=== PATIENT | male | born 1995 | race Caucasian/White ===

== ENCOUNTER 2017-10-16 12:13 | Emergency (ER) | payer SELFPAY ==
[~2017-10-16] VITALS: Ht 180.3 cm; Wt 56.8 kg
[2017-10-16 12:13] VITALS: BP 134/77
[2017-10-16] MEDS ORDERED: IBUP-1114 PO (12:24)
[2017-10-16] MEDS ORDERED: IBUP80TA PO (12:37)
[2017-10-16] MEDS ORDERED: AMOX500C PO (12:37)
[2017-10-16] MEDS ORDERED: AMOXICILLIN 500 MG CAP PO ONE (12:45)
== END 2017-10-16 12:49 | disposition home or self-care (01) ==
LOC: M ED 12:13
DX: K04.7 Periapical abscess without sinus (principal); F17.210 Nicotine dependence, cigarettes, uncomplicated

== ENCOUNTER 2018-11-13 04:46 | Emergency (ER) | payer OTHER, SELFPAY ==
[~2018-11-13] VITALS: Ht 180.3 cm; Wt 58.2 kg
[2018-11-13 04:46] VITALS: BP 142/75
[~2018-11-13 04:46] MED LIST: AMOX500C PO; IBUP-1114 PO; IBUP80TA PO
[2018-11-13 05:46] LABS: INFLUENZA A AMPLIFICATION NEGATIVE (NEGATIVE); INFLUENZA B AMPLIFICATION NEGATIVE (NEGATIVE)
[2018-11-13] MEDS ORDERED: TESS100C PO (06:24)
[2018-11-13] MEDS ORDERED: MAGICMW SSP (06:24)
[2018-11-13] MEDS ORDERED: BENZONATATE 100 MG CAP PO ONE (06:30)
== END 2018-11-13 06:39 | disposition home or self-care (01) ==
LOC: M ED 04:46
DX: J06.9 Acute upper respiratory infection, unspecified (principal)

== ENCOUNTER 2023-03-07 08:14 | Emergency (ER) | payer SELFPAY ==
[~2023-03-07] VITALS: Ht 180.3 cm; Wt 61.9 kg
[~2023-03-07 08:14] MED LIST changes: +MAGICMW SSP; +TESS100C PO
[2023-03-07] MEDS ORDERED: PENI500T PO (09:41)
[2023-03-07] MEDS ORDERED: IBUP-1022 PO (09:41)
[2023-03-07 09:54] VITALS: BP 145/82
== END 2023-03-07 10:22 | disposition home or self-care (01) ==
LOC: M ED 08:14
DX: K04.7 Periapical abscess without sinus (principal); K02.9 Dental caries, unspecified; F17.200 Nicotine dependence, unspecified, uncomplicated

== ENCOUNTER 2023-04-20 09:32 | Emergency (ER) | payer SELFPAY ==
[~2023-04-20] VITALS: Ht 180.3 cm; Wt 61.3 kg
[~2023-04-20 09:32] MED LIST changes: +IBUP-1022 PO; +PENI500T PO
[2023-04-20] MEDS ORDERED: AUGMENTIN 875 MG TAB PO ONE (09:50)
[2023-04-20] MEDS ORDERED: IBUP-1022 PO (09:51)
[2023-04-20] MEDS ORDERED: AMOX875T2 PO (09:51)
[2023-04-20 09:58] VITALS: BP 135/78; TEMP 98.9; O2SAT 100
== END 2023-04-20 10:00 | disposition home or self-care (01) ==
LOC: M ED 09:32
DX: K04.7 Periapical abscess without sinus (principal); F17.200 Nicotine dependence, unspecified, uncomplicated

== ENCOUNTER 2024-05-29 08:48 | Emergency (ER) | payer SELFPAY ==
[~2024-05-29] VITALS: Ht 180.3 cm; Wt 63.7 kg
[~2024-05-29 08:48] MED LIST changes: +AMOX875T2 PO
[2024-05-29] MEDS ORDERED: AMOX875T2 PO (11:19)
[2024-05-29] MEDS ORDERED: NAPR-837 PO (11:19)
[2024-05-29] MEDS: KETOROLAC 30 MG/ML 1ML VIAL IM ONE (11:51)
[2024-05-29] MEDS: AUGMENTIN 875 MG TAB PO ONE (11:51)
[2024-05-29 11:59] VITALS: BP 140/99; TEMP 97.8; O2SAT 98
== END 2024-05-29 12:11 | disposition home or self-care (01) ==
LOC: M ED 08:48
DX: K04.7 Periapical abscess without sinus (principal); K02.9 Dental caries, unspecified
CPT/HCPCS: 96372; 99283; J1885

== ENCOUNTER 2024-07-07 08:58 | Emergency (ER) | payer SELFPAY ==
[~2024-07-07] VITALS: Ht 177.8 cm; Wt 66.0 kg
[~2024-07-07 08:58] MED LIST changes: +NAPR-837 PO
[2024-07-07 08:59] VITALS: BP 129/75; TEMP 98.7; O2SAT 97
[2024-07-07] MEDS ORDERED: PERI0.126 PO (11:04)
[2024-07-07] MEDS ORDERED: IBUP-1022 PO (11:04)
[2024-07-07] MEDS ORDERED: ACET325C5 PO (11:04)
[2024-07-07] MEDS ORDERED: AMOX875T2 PO (11:04)
== END 2024-07-07 11:19 | disposition home or self-care (01) ==
LOC: M ED 08:58
DX: K02.9 Dental caries, unspecified (principal); R68.84 Jaw pain; F17.200 Nicotine dependence, unspecified, uncomplicated; Z91.018 Allergy to other foods

== ENCOUNTER 2024-08-28 19:57 | Emergency (ER) | payer SELFPAY ==
[~2024-08-28] VITALS: Ht 180.3 cm; Wt 65.8 kg
[~2024-08-28 19:57] MED LIST changes: +ACET325C5 PO; +PERI0.126 PO
[2024-08-28] MEDS ORDERED: BENA25CA4 PO (20:40)
[2024-08-28] MEDS: predniSONE 20 MG TAB PO ONE (21:23)
[2024-08-28] MEDS ORDERED: PRED10TA2 PO (21:29)
[2024-08-28 21:36] VITALS: BP 126/71; TEMP 97.3; O2SAT 99
== END 2024-08-28 21:37 | disposition home or self-care (01) ==
LOC: M ED 19:57
DX: T78.40XA Allergy, unspecified, initial encounter (principal); L29.9 Pruritus, unspecified; L50.9 Urticaria, unspecified; F32.A Depression, unspecified
CPT/HCPCS: 99283; J7512

== ENCOUNTER 2024-08-31 03:53 | Emergency (ER) | payer SELFPAY ==
[~2024-08-31] VITALS: Ht 180.3 cm; Wt 66.9 kg
[~2024-08-31 03:53] MED LIST changes: +BENA25CA4 PO; +PRED10TA2 PO
[2024-08-31] MEDS: FAMOTIDINE 20 MG TAB PO ONE (06:23)
[2024-08-31] MEDS: diphenhydrAMINE 50MG CAP PO ONE (06:23)
[2024-08-31] MEDS ORDERED: CETI10CH PO (07:35)
[2024-08-31 07:42] VITALS: BP 110/68; TEMP 97.8; O2SAT 98
== END 2024-08-31 07:45 | disposition home or self-care (01) ==
LOC: M ED 03:53
DX: T78.40XA Allergy, unspecified, initial encounter (principal); F32.A Depression, unspecified; Z91.018 Allergy to other foods